=== PATIENT | male | born 1970 ===

== ENCOUNTER 2023-11-15 16:36 | Observation (INO) | payer BC ==
--- NOTE | 2023-11-15 17:03 | ED ---
General Adult HPI - General Chief complaint: Recheck/Abnormal Lab/Rx Stated complaint: Hypertension Time Seen by Provider: 11/15/23 16:44 Source: patient, RN notes reviewed, old records reviewed (Urgent care) Mode of arrival: ambulatory Limitations: no limitations - History of Present Illness Initial comments: Patient is a 53-year-old male presenting to the emergency department with concern for high blood pressure. Patient states he went to urgent care and blood pressure was found to be high. Patient states he went there secondary to having lightheadedness over the past few days. Patient denies any at this time. No chest pain or difficulty breathing. Patient does have history of hypertension during an episode of heart attack in August 2022. Patient states following this his blood pressure normalized and he was weaned off his blood pressure medications. Blood pressure was still normal this past July when he saw his regular doctor. - Related Data Allergies Allergy/AdvReac Type Severity Reaction Status Date / Time No Known Allergies Allergy Verified 11/15/23 16:41 Review of Systems ROS Statement: Those systems with pertinent positive or pertinent negative responses have been documented in the HPI. ROS Other: All systems not noted in ROS Statement are negative. Constitutional: Denies: fever Respiratory: Denies: dyspnea Cardiovascular: Denies: chest pain Gastrointestinal: Denies: abdominal pain Musculoskeletal: Denies: back pain Past Medical History Past Medical History: No Reported History History of Any Multi-Drug Resistant Organisms: None Reported Past Surgical History: Heart Catheterization Additional Past Surgical History / Comment(s): 2022 Past Psychological History: No Psychological Hx Reported Smoking Status: Current every day smoker Past Alcohol Use History: None Reported Past Drug Use History: None Reported General Exam Limitations: no limitations General appearance: alert, in no apparent distress Head exam: Present: normocephalic Eye exam: Present: normal appearance Neck exam: Present: normal inspection Respiratory exam: Present: normal lung sounds bilaterally Cardiovascular Exam: Present: regular rate, normal rhythm, normal heart sounds Expanded Peripheral pulses: 2+: Radial (R), Radial (L), Posterior Tibialis (R), Posterior Tibialis (L) GI/Abdominal exam: Present: soft. Absent: tenderness Extremities exam: Present: normal inspection. Absent: pedal edema, calf tenderness Neurological exam: Present: alert, oriented X3, CN II-XII intact. Absent: motor sensory deficit Psychiatric exam: Present: normal affect, normal mood Skin exam: Present: normal color Course Vital Signs 11/15/23 11/15/23 11/15/23 16:39 17:51 18:25 Temperature 98.6 F Pulse Rate 67 64 70 Respiratory 18 18 18 Rate Blood Pressure 176/123 163/115 162/99 O2 Sat by Pulse 98 98 99 Oximetry 11/15/23 11/15/23 11/15/23 19:16 20:00 20:41 Temperature Pulse Rate 81 78 62 Respiratory 16 Rate Blood Pressure 157/100 164/108 162/107 O2 Sat by Pulse 98 98 99 Oximetry - Reevaluation(s) Reevaluation #1: 11/15/23 18:42 Repeat EKG shows sinus rhythm rate 64. QTc 392. Left axis. Normal QRS. No acute ST change. EKG Findings - EKG Results: EKG: interpreted by JANETTE (Left axis.), sinus rhythm, normal QRS, normal ST/T Medical Decision Making - Medical Decision Making Was pt. sent in by a medical professional or institution (, PA, AIR POLLUTION COMPLIANCE INSPECTOR, urgent care, hospital, or jail...) When possible be specific @ -No Did you speak to anyone other than the patient for history (EMS, parent, family, police, friend...)? What history was obtained from this source @ -No Did you review nursing and triage notes (agree or disagree)? Why? @ -I reviewed and agree with nursing and triage notes Were old charts reviewed (outside hosp., previous admission, EMS record, old EKG, old radiological studies, urgent care reports/EKG's, jail records)? Report findings @ -No old charts were reviewed Differential Diagnosis (chest pain, altered mental status, abdominal pain women, abdominal pain men, vaginal bleeding, weakness, fever, dyspnea, syncope, headache, dizziness, GI bleed, back pain, seizure, CVA, palpatations, mental health, musculoskeletal)? @ -Differential Dizziness: Benign paroxysmal positional Vertigo, Menieres disease, otitis media, acoustic neuroma, vertebrobasilar insufficiency, cerebellar stroke, encephalitis, hypovolemic, arrhythmia, coronary artery syndrome, anemia, this is not meant to be an all-inclusive list EKG interpreted by me (3pts min.). @ -As above X-rays interpreted by me (1pt min.). @ -Chest x-ray shows no acute process CT interpreted by me (1pt min.). @ -None done U/S interpreted by me (1pt. min.). @ -None done What testing was considered but not performed or refused? (CT, X-rays, U/S, labs)? Why? @ -None What meds were considered but not given or refused? Why? @ -None Did you discuss the management of the patient with other professionals (professionals i.e. DrFelice, PA, AIR POLLUTION COMPLIANCE INSPECTOR, lab, RT, psych nurse, administrator social welfare, talent acquisition program manager, teacher, field artillery officer, caser shoe parts)? Give summary @ -Secondary to continued hypertension. Patient will be admitted. Case discussed with Dr. Brown, who will admit his patient. Was smoking cessation discussed for >3mins.? @ -No Was critical care preformed (if so, how long)? @ -31 minutes critical care time Were there social determinants of health that impacted care today? How? (H omelessness, low income, unemployed, alcoholism, drug addiction, transportation, low edu. Level, literacy, decrease access to med. care, group home, rehab)? @ -No Was there de-escalation of care discussed even if they declined (Discuss DNR or withdrawal of care, Hospice)? DNR status @ -No What co-morbidities impacted this encounter? (DM, HTN, Smoking, COPD, CAD, Cancer, CVA, ARF, Chemo, Hep., AIDS, mental health diagnosis, sleep apnea, morbid obesity)? @ -History of hypertension previously, not on medications current Was patient admitted / discharged? Hospital course, mention meds given and route , prescriptions, significant lab abnormalities, going to OR and other pertinent info. @ -Patient presents with some lightheadedness however found to be hypertensive. Patient remains hypertensive despite 2 doses of intravenous Vasotec. Patient will be provided more medication. Patient and family are updated on results and plan. Patient will be admitted. Admission orders written Undiagnosed new problem with uncertain prognosis? @ -No Drug Therapy requiring intensive monitoring for toxicity (Heparin, Nitro, Insulin, Cardizem)? @ -No Were any procedures done? @ -No Diagnosis/symptom? @ -Hypertensive urgency Acute, or Chronic, or Acute on Chronic? @ -Acute Uncomplicated (without systemic symptoms) or Complicated (systemic symptoms)? @ -Default Side effects of treatment? @ -No Exacerbation, Progression, or Severe Exacerbation? @ -No Poses a threat to life or bodily function? How? (Chest pain, [place], [place], pneumonia, PE, COPD, DKA, ARF, appy, cholecystitis, CVA, Diverticulitis, Homicidal, Suicidal, threat to staff... and all critical care pts) @ -Risk for organ dysfunction - Lab Data Result diagrams: 11/15/23 17:11 11/15/23 17:11 Lab Results 11/15/23 11/15/23 11/15/23 Range/Units 17:11 17:11 17:11 WBC 4.3 (3.8-10.6) k/uL RBC 4.66 (4.30-5.90) m/uL Hgb 14.1 (13.0-17.5) gm/dL Hct 41.0 (39.0-53.0) % MCV 87.9 (80.0-100.0) fL MCH 30.3 (25.0-35.0) pg MCHC 34.5 (31.0-37.0) g/dL RDW 13.0 (11.5-15.5) % Plt Count 151 (150-450) k/uL MPV 8.6 Neutrophils % 53 % Lymphocytes % 30 % Monocytes % 6 % Eosinophils % 7 % Basophils % 1 % Neutrophils # 2.3 (1.3-7.7) k/uL Lymphocytes # 1.3 (1.0-4.8) k/uL Monocytes # 0.3 (0-1.0) k/uL Eosinophils # 0.3 (0-0.7) k/uL Basophils # 0.0 (0-0.2) k/uL PT 10.8 (10.0-12.5) sec INR 1.0 (<1.2) APTT 25.1 (22.0-30.0) sec Sodium 140 (137-145) mmol/L Potassium 4.2 (3.5-5.1) mmol/L Chloride 108 H (98-107) mmol/L Carbon Dioxide 27 (22-30) mmol/L Anion Gap 5 mmol/L BUN 14 (9-20) mg/dL Creatinine 0.77 (0.66-1.25) mg/dL Est GFR (CKD-EPI)AfAm >90 (>60 ml/min/1.73 sqM) Est GFR (CKD-EPI)NonAf >90 (>60 ml/min/1.73 sqM) Glucose 101 H (74-99) mg/dL Plasma Lactic Acid Pastor (0.7-2.0) mmol/L Calcium 9.1 (8.4-10.2) mg/dL Magnesium 2.3 (1.6-2.3) mg/dL Total Bilirubin 0.4 (0.2-1.3) mg/dL AST 27 (17-59) U/L ALT 29 (4-49) U/L Alkaline Phosphatase 55 (38-126) U/L Troponin I (0.000-0.034) ng/mL Total Protein 7.0 (6.3-8.2) g/dL Albumin 4.4 (3.5-5.0) g/dL TSH 1.500 (0.465-4.680) mIU/L 11/15/23 11/15/23 Range/Units 17:11 17:11 WBC (3.8-10.6) k/uL RBC (4.30-5.90) m/uL Hgb (13.0-17.5) gm/dL Hct (39.0-53.0) % MCV (80.0-100.0) fL MCH (25.0-35.0) pg MCHC (31.0-37.0) g/dL RDW (11.5-15.5) % Plt Count (150-450) k/uL MPV Neutrophils % % Lymphocytes % % Monocytes % % Eosinophils % % Basophils % % Neutrophils # (1.3-7.7) k/uL Lymphocytes # (1.0-4.8) k/uL Monocytes # (0-1.0) k/uL Eosinophils # (0-0.7) k/uL Basophils # (0-0.2) k/uL PT (10.0-12.5) sec INR (<1.2) APTT (22.0-30.0) sec Sodium (137-145) mmol/L Potassium (3.5-5.1) mmol/L Chloride (98-107) mmol/L Carbon Dioxide (22-30) mmol/L Anion Gap mmol/L BUN (9-20) mg/dL Creatinine (0.66-1.25) mg/dL Est GFR (CKD-EPI)AfAm (>60 ml/min/1.73 sqM) Est GFR (CKD-EPI)NonAf (>60 ml/min/1.73 sqM) Glucose (74-99) mg/dL Plasma Lactic Acid Pastor 0.8 (0.7-2.0) mmol/L Calcium (8.4-10.2) mg/dL Magnesium (1.6-2.3) mg/dL Total Bilirubin (0.2-1.3) mg/dL AST (17-59) U/L ALT (4-49) U/L Alkaline Phosphatase (38-126) U/L Troponin I <0.012 (0.000-0.034) ng/mL Total Protein (6.3-8.2) g/dL Albumin (3.5-5.0) g/dL TSH (0.465-4.680) mIU/L Critical Care Time Critical Care Time: Yes Total Critical Care Time: 31 Disposition Clinical Impression: Hypertensive urgency Disposition: ADMITTED IP TO THIS HOSP Is patient prescribed a controlled substance at d/c from ED?: No Referrals: Albert Brown DO [Primary Care Provider] - 1-2 days Time of Disposition: 20:55
[2023-11-15] MEDS: ENALAPRILAT 1.25 MG/ML 1 ML VIAL IVP STA ×2 (17:52→19:26)
[2023-11-15 18:12] LABS: Basophils % (A) 1 %; Eosinophils # (A) 0.3 k/uL (0-0.7); Eosinophils % (A) 7 %; HGB 14.1 gm/dL (13.0-17.5); Lymphocytes # (A) 1.3 k/uL (1.0-4.8); Lymphocytes % (A) 30 %; MCH 30.3 pg (25.0-35.0); MCHC 34.5 g/dL (31.0-37.0); MCV 87.9 fL (80.0-100.0); Mean Platelet Volume 8.6; Monocytes # (A) 0.3 k/uL (0-1.0); Monocytes % (A) 6 %; Neutrophils # (A) 2.3 k/uL (1.3-7.7); Neutrophils % (A) 53 %; Platelet Count 151 k/uL (150-450); RBC 4.66 m/uL (4.30-5.90); WBC 4.3 k/uL (3.8-10.6)
--- NOTE | 2023-11-15 18:16 | XR ---
EXAMINATION TYPE: XR chest 2V DATE OF EXAM: 11/15/2023 6:11 PM CLINICAL INDICATION:Male, 53 years old with history of Weakness; [facility] COMPARISON: None TECHNIQUE: XR chest 2V Frontal and lateral views of the chest. FINDINGS: Lungs/Pleura: There is no evidence of pleural effusion, focal consolidation, or pneumothorax. Pulmonary vascularity: Unremarkable. Heart/mediastinum: Cardiomediastinal silhouette is unremarkable. Musculoskeletal: No acute osseous pathology. IMPRESSION: No acute cardiopulmonary disease/process.
[2023-11-15 18:22] LABS: Partial Thromboplastin Time 25.1 sec (22.0-30.0); Prothrombin Time 10.8 sec (10.0-12.5)
[2023-11-15 18:31] LABS: ALT 29 U/L (4-49); AST 27 U/L (17-59); African American GFR (CKD) >90 (>60 ml/min/1.73 sqM); Albumin 4.4 g/dL (3.5-5.0); Alkaline Phosphatase 55 U/L (38-126); Anion Gap 5 mmol/L; Blood Urea Nitrogen 14 mg/dL (9-20); Calcium 9.1 mg/dL (8.4-10.2); Carbon Dioxide 27 mmol/L (22-30); Chloride 108 mmol/L (98-107); Glucose 101 mg/dL (74-99); Magnesium 2.3 mg/dL (1.6-2.3); Non-African American GFR(CKD) >90 (>60 ml/min/1.73 sqM); Potassium 4.2 mmol/L (3.5-5.1); Sodium 140 mmol/L (137-145); Total Bilirubin 0.4 mg/dL (0.2-1.3)
[2023-11-15] MEDS ORDERED: ACETAMINOPHEN TAB 325 MG TAB PO PRN (20:56)
[2023-11-15] MEDS ORDERED: NALOXONE 0.4 MG/ML 1 ML VIAL IV PRN (20:56)
[2023-11-15] MEDS: hydrALAZINE HCL 20 MG/ML 1 ML VIAL IVP STA (21:05)
[2023-11-15] MEDS: METOPROLOL TARTRATE 25 MG TAB PO SCH (21:05)
[2023-11-16] MEDS: lisinopriL 20 MG TAB PO SCH (08:15)
[2023-11-16] MEDS: hydrALAZINE HCL 20 MG/ML 1 ML VIAL IVP PRN (10:24)
[2023-11-16] MEDS: ACETAMINOPHEN IV (For NPO) 1,000 MG in EMPTY BAG 1 BAG IVPB STA (11:22)
[2023-11-16] MEDS: ONDANSETRON 4 MG/2 ML VIAL IVP PRN (11:23)
[2023-11-16] MEDS: MECLIZINE 25 MG TAB PO PRN (11:24)
[2023-11-16] MEDS: MAGNESIUM SULFATE-D5W PMX 1 GM in DEXTROSE/WATER 1 100ML.BAG IVPB ONE (11:34)
[2023-11-16] MEDS ORDERED: ONDANSETRON 4 MG/2 ML VIAL IVP PRN (11:56)
[2023-11-16] MEDS: amLODIPine 5 MG TAB PO SCH (12:25)
--- NOTE | 2023-11-16 13:10 | P.CRDCN ---
History of Present Illness Consult date: 11/16/23 Reason for Consult (text): HYPERTENSIVE EMERGENCY History of present illness: History of present illness: This is a 53-year-old male patient of Dr. Sheikh with no previous cardiac history. He denies history of hypertension. Patient states t he was experiencing dizziness and looked it up on Google search and hilar pressure was one of the etiologies. Patient checked his blood pressure at home and it was quite high. He did go to the urgent clinic and from there was sent into the hospital. He had 1 episode of high blood pressure readings in the past in 2021 but has not been on any medications. Patient presented to the hospital with a blood pressure of 176/123. He is status post Vasotec x 2 and hydralazine 10 mg IV x 1. He also received IV Tylenol for headache. Blood pressure is now 139/82. Patient is seen today in the emergency center waiting for bed on the observation unit. EKG sinus rhythm with no acute ST changes Chest x-ray: No acute process. CBC, INR, CMP unremarkable. TSH is 1.5. Troponin negative x 1. Home cardiac medications: None Review Of Systems: At the time of my exam: CONSTITUTIONAL: Denies fever or chills. Reports headache. HEENT: Denies blurred vision, vision changes, or eye pain. Denies hemoptysis CARDIOVASCULAR: Denies chest pain. Denies orthopnea. Denies PND. Denies palpitations RESPIRATORY: Denies shortness of breath. GASTROINTESTINAL: Denies abdominal pain. Denies nausea or vomiting. HEMATOLOGIC: Denies bleeding disorders. GENITOURINARY: Denies any blood in urine. SKIN: Denies pruitis. Denies rash. Physical examination: Gen: This is a 53-year-old male in no acute distress VS: reviewed HEENT: Head is atraumatic, normocephalic. Pupils equal, round. Sclerae is anicteric. NECK: Supple. No JVD. LUNGS: Clear to auscultation. No wheezes or rhonchi. No intercostal retractions. HEART: Regular rate and rhythm. No murmur. ABDOMEN: Soft No tenderness. EXTREMITIES: No pedal edema. No calf tenderness. NEUROLOGICAL: Patient is awake, alert and oriented x3. Assessment: Hypertensive urgency Plan: Continue patient on lisinopril 20 mg daily, Lopressor 25 mg twice daily Add amlodipine 5 mg daily Obtain cortisol, metanephrines, aldosterone, renin Obtain 2-D echocardiogram and Doppler study to assess cardiac structure and function Monitor blood pressure closely Further recommendations to follow based upon clinical course Thank you kindly for this consultation. Nurse practitioner note has been reviewed, I agree with documented findings and plan of care. Patient was seen and examined. Past Medical History Past Medical History: No Reported History History of Any Multi-Drug Resistant Organisms: None Reported Past Surgical History: Heart Catheterization Additional Past Surgical History / Comment(s): [place] 2022 Past Psychological History: No Psychological Hx Reported Smoking Status: Current every day smoker Past Alcohol Use History: None Reported Past Drug Use History: None Reported Medications and Allergies Home Medications Medication Instructions Recorded Confirmed Type No Known Home Medications 11/15/23 11/15/23 History Allergies Allergy/AdvReac Type Severity Reaction Status Date / Time No Known Allergies Allergy Verified 11/15/23 21:41 Physical Exam Vitals: Vital Signs Temp Pulse Pulse Resp BP BP Pulse Ox 11/16/23 11:32 98.3 F 88 18 139/82 98 11/16/23 10:23 80 18 167/108 99 11/16/23 08:14 98.1 F 85 18 163/109 99 11/16/23 06:17 81 22 135/88 98 11/16/23 02:00 85 17 131/93 98 11/15/23 21:50 92 16 153/101 99 11/15/23 20:41 62 162/107 99 11/15/23 20:00 78 164/108 98 11/15/23 19:16 81 16 157/100 98 11/15/23 18:25 70 18 162/99 99 11/15/23 17:51 64 18 163/115 98 11/15/23 16:39 98.6 F 67 18 176/123 98 Intake and Output 11/15/23 11/16/23 11/16/23 22:59 06:59 14:59 Other: Voiding Method Toilet # Voids 1 1 Weight 77.111 kg Results 11/15/23 17:11 11/15/23 17:11 Cardiac Enzymes 11/15/23 11/15/23 Range/Units 17:11 17:11 AST 27 (17-59) U/L Troponin I <0.012 (0.000-0.034) ng/mL Coagulation 11/15/23 Range/Units 17:11 PT 10.8 (10.0-12.5) sec APTT 25.1 (22.0-30.0) sec CBC 11/15/23 Range/Units 17:11 WBC 4.3 (3.8-10.6) k/uL RBC 4.66 (4.30-5.90) m/uL Hgb 14.1 (13.0-17.5) gm/dL Hct 41.0 (39.0-53.0) % Plt Count 151 (150-450) k/uL Comprehensive Metabolic Panel 11/15/23 Range/Units 17:11 Sodium 140 (137-145) mmol/L Potassium 4.2 (3.5-5.1) mmol/L Chloride 108 H (98-107) mmol/L Carbon Dioxide 27 (22-30) mmol/L BUN 14 (9-20) mg/dL Creatinine 0.77 (0.66-1.25) mg/dL Glucose 101 H (74-99) mg/dL Calcium 9.1 (8.4-10.2) mg/dL AST 27 (17-59) U/L ALT 29 (4-49) U/L Alkaline Phosphatase 55 (38-126) U/L Total Protein 7.0 (6.3-8.2) g/dL Albumin 4.4 (3.5-5.0) g/dL Current Medications Generic Name Dose Route Start Last Admin Trade Name Freq PRN Reason Stop Dose Admin Acetaminophen 650 mg 11/15/23 20:56 Acetaminophen Tab 325 Mg Tab PO Q6HR PRN Mild Pain or Fever > 100.5 Hydralazine HCl 10 mg 11/15/23 20:57 11/16/23 10:24 Hydralazine Hcl 20 Mg/Ml 1 Ml Vial IVP 10 mg Q4HR PRN Administration Blood Pressure - High Lisinopril 20 mg 11/16/23 09:00 11/16/23 08:15 Lisinopril 20 Mg Tab PO 20 mg DAILY DAVID Administration Meclizine HCl 25 mg 11/16/23 06:54 11/16/23 11:24 Meclizine 25 Mg Tab PO 25 mg TID PRN Administration Vertigo Metoprolol Tartrate 25 mg 11/15/23 21:00 03/06/24 08:15 Metoprolol Tartrate 25 Mg Tab PO 25 mg BID DAVID Administration Naloxone HCl 0.2 mg 11/15/23 20:56 Naloxone 0.4 Mg/Ml 1 Ml Vial IV Q2M PRN Opioid Reversal Ondansetron HCl 4 mg 11/16/23 11:56 Ondansetron 4 Mg/2 Ml Vial IVP Q6HR PRN Nausea And Vomiting Intake and Output 11/15/23 11/16/23 11/16/23 22:59 06:59 14:59 Other: Voiding Method Toilet # Voids 1 1 Weight 77.111 kg 11/15/23 17:11 11/15/23 17:11
--- NOTE | 2023-11-16 18:02 | P.HPIM ---
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 Computer history states patient is an everyday smoker -incorrect -patient does not smoke .computer reports an HI in 2022; apparently 1 year ago patient had a similar episode, reports first troponin elevated, second troponin within normal limits, labeled with an "HI" . Patient proceeded to follow-up with [facility] trouble shooter. Reports had a echo and stress-reporting both normal. Reports 1 episode of high blood pressure readings in 2021. Followed closely with his PCP, Dr. Brown, every 4 months. Over the last year, prior medications have been weaned off as per PCP. Over the last few days, developed lightheadedness, dizziness, felt hypertensive possibly and proceeded to the urgent care .discovered to be hypertensive and directed to the ER .denies chest pain, palpitations or shortness of breath. Positive headache. On admission blood pressure 176/123, received Vasotec and hydralazine IV. EKG reported sinus rhythm, chest x-ray reported nonacute, CBC, INR, CMP unremarkable, TSH 1.5, troponin negative x 1. Blood pressure currently 135/88, heart rate 81, respiratory rate 22. Maintaining O2 sats in the high 90s on room air. Review of Systems ROS Statement: Those systems with pertinent positive or pertinent negative responses have been documented in the HPI. ROS Other: All systems not noted in ROS Statement are negative. Past Medical History Past Medical History: No Reported History History of Any Multi-Drug Resistant Organisms: None Reported Past Surgical History: Heart Catheterization Additional Past Surgical History / Comment(s): [place] 2022 Past Psychological History: No Psychological Hx Reported Smoking Status: Current every day smoker Past Alcohol Use History: None Reported Past Drug Use History: None Reported Medications and Allergies Home Medications Medication Instructions Recorded Confirmed Type No Known Home Medications 11/15/23 11/15/23 History Allergies Allergy/AdvReac Type Severity Reaction Status Date / Time No Known Allergies Allergy Verified 11/15/23 21:41 Physical Exam Vitals: Vital Signs Temp Pulse Pulse Resp BP BP Pulse Ox 11/16/23 11:32 98.3 F 88 18 139/82 98 11/16/23 10:23 80 18 167/108 99 11/16/23 08:14 98.1 F 85 18 163/109 99 11/16/23 06:17 81 22 135/88 98 11/16/23 02:00 85 17 131/93 98 11/15/23 21:50 92 16 153/101 99 11/15/23 20:41 62 162/107 99 11/15/23 20:00 78 164/108 98 11/15/23 19:16 81 16 157/100 98 11/15/23 18:25 70 18 162/99 99 11/15/23 17:51 64 18 163/115 98 11/15/23 16:39 98.6 F 67 18 176/123 98 Intake and Output 11/15/23 11/16/23 11/16/23 22:59 06:59 14:59 Other: Voiding Method Toilet # Voids 1 1 Weight 77.111 kg PHYSICAL EXAM: VITAL SIGNS: [As above] GENERAL: Pleasant, alert and oriented x 3, resting on stretcher, no acute distre ss HEENT: Normocephalic ,conjunctivae normal. eyes normal. NECK: Supple, no JVD. No thyroid enlargement. No LNs CARDIOVASCULAR: S1, S2 regular.. No murmur RESPIRATION: Unlabored, equal air entry, clear to auscultation . ABDOMEN: Soft, nondistended, nontender . No guarding. no masses palpable. No ascites, No hepatosplenomegaly.+BS. LEGS: No edema. no swelling, no clubbing, no cyanosis, no calf tenderness. NERVOUS SYSTEM: Cranial N 2-12 grossly normal. No focal deficits. Strength and sensation grossly intact.. Skin: Warm and dry, no rash Results CBC & Chem 7: 11/15/23 17:11 11/15/23 17:11 Labs: Abnormal Lab Results - Last 24 Hours (Table) 11/15/23 Range/Units 17:11 Chloride 108 H (98-107) mmol/L Glucose 101 H (74-99) mg/dL Assessment and Plan Assessment: Hypertensive urgency Plan: Continue on current medication regimen ,monitoring and symptomatic treatment. Continue on MELLISSA inhibitor and beta-miguelina, close monitoring of blood pressure. IV magnesium and IV Tylenol ordered for headache. cardiology consulted with recommendations pending. Echo ordered. PPI for GI prophylaxis. The impression and plan of care has been dictated as directed. : I performed a history and examination of this patient, discussed the same with the dictator. I agree with the dictator's note ,documented as a scribe. Any additional findings or plans will be noted.
[2023-11-16] MEDS: DICLOFENAC SODIUM GEL 100 GM TUBE TOPICAL SCH (18:05)
[2023-11-16] MEDS: PANTOPRAZOLE 40 MG/10 ML VIAL IVP SCH (18:07)
--- NOTE | 2023-11-17 09:44 | P.PN ---
Subjective Progress Note Date: 11/17/23 Reason for Consult (text): HYPERTENSIVE EMERGENCY History of present illness: This is a 53-year-old male patient of Dr. Sheikh with no previous cardiac history. He denies history of hypertension. Patient states t he was experiencing dizziness and looked it up on Google search and hilar pressure was one of the etiologies. Patient checked his blood pressure at home and it was quite high. He did go to the urgent clinic and from there was sent into the hospital. He had 1 episode of high blood pressure readings in the past in 2021 but has not been on any medications. Patient presented to the hospital with a blood pressure of 176/123. He is status post Vasotec x 2 and hydralazine 10 mg IV x 1. He also received IV Tylenol for headache. Blood pressure is now 139/82. Patient is seen today in the emergency center waiting for bed on the observation unit. EKG sinus rhythm with no acute ST changes Chest x-ray: No acute process. CBC, INR, CMP unremarkable. TSH is 1.5. Troponin negative x 1. Home cardiac medications: None 11/16 Patient is seen today in follow-up on the observation unit. Blood pressure 125/76, heart rate 81, pulse ox 99% on room air. Patient is currently on amlodipine, lisinopril and metoprolol. We will plan to discontinue the metoprolol. Cortisol level 21. Other lab work for secondary hypertension are pending. Physical examination: Gen: This is a 53-year-old male in no acute distress VS: reviewed HEENT: Head is atraumatic, normocephalic. Pupils equal, round. Sclerae is anicteric. NECK: Supple. No JVD. LUNGS: Clear to auscultation. No wheezes or rhonchi. No intercostal retractions. HEART: Regular rate and rhythm. No murmur. ABDOMEN: Soft No tenderness. EXTREMITIES: No pedal edema. No calf tenderness. NEUROLOGICAL: Patient is awake, alert and oriented x3. Assessment: Hypertensive urgency Plan: Continue patient on lisinopril 20 mg daily and amlodipine 5 mg daily Obtain metanephrines, aldosterone, renin Obtain 2-D echocardiogram and Doppler study to assess cardiac structure and function If echocardiogram is unremarkable, patient is cleared for discharge from cardiology and may follow-up with Dr. Sheikh in 1 week. Nurse practitioner note has been reviewed, I agree with documented findings and plan of care. Patient was seen and examined. Objective - Vital Signs Vital signs: Vital Signs Temp 98.0 F 11/17/23 02:00 Pulse 81 11/17/23 02:00 Resp 16 11/17/23 02:00 BP 125/76 11/17/23 02:00 Pulse Ox 99 11/17/23 02:00 FiO2 Intake & Output 11/16/23 11/17/23 11/17/23 18:59 06:59 18:59 Weight 77.111 kg Other: Voiding Method Toilet Toilet # Voids 3 - Labs CBC & Chem 7: 11/15/23 17:11 11/15/23 17:11
--- NOTE | 2023-11-17 10:32 | CA ---
Transthoracic Echo Report Name: Sharad Dennison Age: 53 Gender: M : 1970 Exam Date: 11/17/2023 08:45 Exam Location: [facility] Ht (in): 66 Wt (lb): 170 Ordering Physician: Jil Danielson Attending/Referring Phys: [id number], Jagjit Pullman Car Repairer Niurka Ceballos RCS Procedure CPT: Indications: LVF Cardiac Hx: Hypertension Technical Quality: Good Contrast 1: Total Dose (mL): Contrast 2: Total Dose (mL): MEASUREMENTS (Male / Female) Normal Values 2D ECHO LV Diastolic Diameter PLAX 4.0 cm 4.2 - 5.9 / 3.9 - 5.3 cm LV Systolic Diameter PLAX 2.6 cm IVS Diastolic Thickness 1.3 cm 0.6 - 1.0 / 0.6 - 0.9 cm LVPW Diastolic Thickness 1.0 cm 0.6 - 1.0 / 0.6 - 0.9 cm LV Relative Wall Thickness 0.6 RV Internal Dim ED PLAX 2.0 cm LVOT Diameter 2.1 cm LV Diastolic Volume MOD BP 105.0 cm??? 67 - 155 / 56 - 104 cm??? LV Systolic Volume MOD BP 36.2 cm??? 22 - 58 / 19 - 49 cm??? LV Ejection Fraction MOD BP 65.5 % >= 55 % LV Cardiac Index MOD BP 2986.9 cm???/min???m??? LV Diastolic Volume MOD 4C 111.8 cm??? LV Systolic Volume MOD 4C 39.8 cm??? LV Ejection Fraction MOD 4C 64.4 % LV Cardiac Index MOD 4C 3123.1 cm???/min???m??? LV Diastolic Length 4C 8.7 cm LV Systolic Length 4C 6.9 cm LV Diastolic Volume MOD 2C 94.3 cm??? LV Systolic Volume MOD 2C 32.1 cm??? LV Ejection Fraction MOD 2C 66.0 % LV Cardiac Index MOD 2C 2699.7 cm???/min???m??? LV Diastolic Length 2C 8.2 cm LV Systolic Length 2C 6.7 cm LA Volume 46.7 cm??? 18 - 58 / 22 - 52 cm??? LA Volume Index 24.4 cm???/m??? 16 - 28 cm???/m??? Ascending Aorta Diameter 3.1 cm DOPPLER AV Peak Velocity 121.5 cm/s AV Peak Gradient 5.9 mmHg AV Mean Velocity 83.1 cm/s AV Mean Gradient 3.2 mmHg AV Velocity Time Integral 24.9 cm LVOT Peak Velocity 128.0 cm/s LVOT Peak Gradient 6.6 mmHg LVOT Velocity Time Integral 25.1 cm LVOT Stroke Volume 85.8 cm??? LVOT Stroke Volume Index 46.0 ml/m??? LVOT Cardiac Index 3725.6 cm???/min???m??? AV Area Cont Eq vti 3.4 cm??? AV Area Cont Eq pk 3.6 cm??? Mitral E Point Velocity 75.1 cm/s Mitral A Point Velocity 73.8 cm/s Mitral E to A Ratio 1.0 MV Deceleration Time 170.9 ms MV E' Velocity 5.5 cm/s Mitral E to MV E' Ratio 13.6 PV Peak Velocity 93.0 cm/s PV Peak Gradient 3.5 mmHg FINDINGS Left Ventricle Left ventricular ejection fraction is estimated at 60-65 %. Mildly increased septal wall thickness. Left ventricular cavity size normal. No obvious regional wall motion abnormalities. Right Ventricle Normal right ventricular size and function. Unable to determine right ventricular systolic function. Right Atrium Normal right atrial size. Left Atrium Normal left atrial size. Mitral Valve Structurally normal mitral valve. No evidence for mitral valve prolapse. No mitral stenosis. Trace mitral regurgitation. Aortic Valve Trileaflet aortic valve. No aortic stenosis. Mild aortic regurgitation. Tricuspid Valve Structurally normal tricuspid valve. No tricuspid stenosis, regurgitation or prolapse. Pulmonic Valve Structurally normal pulmonic valve. No pulmonic regurgitation. No pulmonic stenosis. Pericardium No pericardial effusion. Aorta Normal size aortic root and proximal ascending aorta. CONCLUSIONS Normal left ventricular size wall motion systolic function Mild aortic regurgitation Previewed by: Dr. Eyad Ruvalcaba MD (Electronically Signed) Final Date: 17 November 2023 10:31
[2023-11-17 14:46] LABS: Glucose,Whole Blood 115 mg/dL (70-110)
[2023-11-18] MEDS: amLODIPine 10 MG TAB PO SCH (08:23)
--- NOTE | 2023-11-18 09:20 | P.PN ---
Subjective Date of service for this note is 11/17/2023. Patient is seen and examined by me at bedside. also was present at bedside. 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 Computer history states patient is an everyday smoker -incorrect -patient does not smoke .computer reports an IN in 2022; apparently 1 year ago patient had a similar episode, reports first troponin elevated, second troponin within normal limits, labeled with an "IN" . Patient proceeded to follow-up with [place] manual lathe operator. Reports had a echo and stress-reporting both normal. Reports 1 episode of high blood pressure readings in 2021. Followed closely with his PCP, Dr. Brown, every 4 months. Over the last year, prior medications have been weaned off as per PCP. Over the last few days, developed lightheadedness, dizziness, felt hypertensive possibly and proceeded to the urgent care .discovered to be hypertensive and directed to the ER .denies chest pain, palpitations or shortness of breath. Positive headache. On admission blood pressure 176/123, received Vasotec and hydralazine IV. EKG reported sinus rhythm, chest x-ray reported nonacute, CBC, INR, CMP unremarkable, TSH 1.5, troponin negative x 1. Blood pressure currently 135/88, heart rate 81, respiratory rate 22. Maintaining O2 sats in the high 90s on room air. 11/17/2023 Patient is a pleasant 53 years old male who presents initially because of high blood pressure. Blood pressure on admission was 176/123. Patient was evaluated by manual lathe operator and he was started on Norvasc 5 mg, lisinopril 20 mg and metoprolol 25 mg however metoprolol was discontinued today by manual lathe operator and cleared him for discharge however the patient felt extremely weak and lethargic we monitored him for another 2 hours patient remains very weak and lethargic therefore we held his discharge. We are going to monitor him for another 24 hours Patient also is afebrile Labs including CBC, INR, BMP, liver enzymes were unremarkable TSH is 1.5 Cortisol 21 EKG showing sinus rhythm at 64 and chest x-ray is negative for acute process Case was discussed with the bedside nurse Chris Objective - Vital Signs Vital signs: Vital Signs Temp 97.4 F L 11/18/23 07:00 Pulse 81 11/18/23 08:30 Resp 19 11/18/23 07:00 BP 150/95 11/18/23 08:30 Pulse Ox 99 11/18/23 08:30 FiO2 Intake & Output 11/17/23 11/18/23 11/18/23 18:59 06:59 18:59 Intake Total 100 Balance 100 Intake: Oral 100 Other: Voiding Method Toilet Toilet # Voids 2 3 - Exam -GENERAL: The patient is alert and oriented x3, not in any acute distress. Well developed, well nourished. Patient is very weak and lethargic HEENT: Pupils are round and equally reacting to light. EOMI. No scleral icterus. No conjunctival pallor. Normocephalic, atraumatic. No pharyngeal erythema. No thyromegaly. CARDIOVASCULAR: S1 and S2 present. No murmurs, rubs, or gallops. PULMONARY: Chest is clear to auscultation, no wheezing , no crackles. ABDOMEN: Soft, nontender, nondistended, normoactive bowel sounds. No palpable organomegaly. MUSCULOSKELETAL: No joint swelling or deformity. EXTREMITIES: No cyanosis, clubbing, or pedal edema. NEUROLOGICAL: Gross neurological examination did not reveal any focal deficits. SKIN: No rashes. no petechiae. - Labs CBC & Chem 7: 11/15/23 17:11 11/15/23 17:11 Labs: Abnormal Lab Results - Last 24 Hours (Table) 11/16/23 11/17/23 Range/Units 12:57 14:44 POC Glucose (mg/dL) 115 H (70-110) mg/dL Renin Direct <2.1 L (3.1 - 57.1) pg/mL Assessment and Plan Assessment: Hypertension with urgency present on admission, currently better controlled Severe weakness and lethargy Plan: Continue with Norvasc 5 mg and lisinopril per manual lathe operator Continue monitoring for another 24 hours Check BMP in the morning Cardiology already cleared the patient for discharge but we held it because of his weakness Labs and medication were reviewed.. Continue same treatment. Continue with symptomatic treatment. Monitor labs and vitals. DVT and GI prophylaxis. Further recommendations as per clinical course of the patient DVT prophylaxis: Subcutaneous heparin GI Prophylaxis: Pepcid
[2023-11-18 10:33] LABS: African American GFR (CKD) >90 (>60 ml/min/1.73 sqM); Anion Gap 13 mmol/L; Blood Urea Nitrogen 9 mg/dL (9-20); Calcium 9.4 mg/dL (8.4-10.2); Carbon Dioxide 19 mmol/L (22-30); Chloride 108 mmol/L (98-107); Glucose 175 mg/dL (74-99); Non-African American GFR(CKD) >90 (>60 ml/min/1.73 sqM); Potassium 4.5 mmol/L (3.5-5.1); Sodium 140 mmol/L (137-145)
--- NOTE | 2023-11-18 10:54 | P.PN ---
Subjective Progress Note Date: 11/18/23 Reason for Consult (text): HYPERTENSIVE EMERGENCY History of present illness: This is a 53-year-old male patient of Dr. Sheikh with no previous cardiac history. He denies history of hypertension. Patient states t he was experiencing dizziness and looked it up on Google search and hilar pressure was one of the etiologies. Patient checked his blood pressure at home and it was quite high. He did go to the urgent clinic and from there was sent into the hospital. He had 1 episode of high blood pressure readings in the past in 2021 but has not been on any medications. Patient presented to the hospital with a blood pressure of 176/123. He is status post Vasotec x 2 and hydralazine 10 mg IV x 1. He also received IV Tylenol for headache. Blood pressure is now 139/82. Patient is seen today in the emergency center waiting for bed on the observation unit. EKG sinus rhythm with no acute ST changes Chest x-ray: No acute process. CBC, INR, CMP unremarkable. TSH is 1.5. Troponin negative x 1. Home cardiac medications: None 11/16 Patient is seen today in follow-up on the observation unit. Blood pressure 125/76, heart rate 81, pulse ox 99% on room air. Patient is currently on amlodipine, lisinopril and metoprolol. We will plan to discontinue the metoprolol. Cortisol level 21. Other lab work for secondary hypertension are pending. 11/17 Patient's blood pressure continues to be elevated 151/103. States he still feels a little weak. Repeat blood work reveals sodium 140, potassium 4.5, chloride 108, CO2 19, BUN 9 creatinine 0.77. Echocardiogram reveals EF 60 to 65%, mild aortic regurgitation. Renin direct is less than 2.1 and aldosterone level 8.1. Physical examination: Gen: This is a 53-year-old male in no acute distress VS: reviewed HEENT: Head is atraumatic, normocephalic. Pupils equal, round. Sclerae is anicteric. LUNGS: Clear to auscultation. No wheezes or rhonchi. No intercostal retractions. HEART: Regular rate and rhythm. No murmur. EXTREMITIES: No pedal edema. No calf tenderness. NEUROLOGICAL: Patient is awake, alert and oriented x3. Assessment: Hypertensive urgency Plan: Increase amlodipine to 10 mg daily and continue lisinopril at 20 mg daily If blood pressure remains elevated by this afternoon, increase lisinopril to 30 mg daily Obtain metanephrines If blood pressure is improved, patient is cleared for discharge from cardiology and may follow-up with Dr. Jennifer Ruvalcaba. Nurse practitioner note has been reviewed, I agree with documented findings and plan of care. Patient was seen and examined. Objective - Vital Signs Vital signs: Vital Signs Temp 97.4 F L 11/18/23 07:00 Pulse 67 11/18/23 07:00 Resp 19 11/18/23 07:00 BP 151/103 11/18/23 07:00 Pulse Ox 100 11/18/23 07:00 FiO2 Intake & Output 11/17/23 11/18/23 11/18/23 18:59 06:59 18:59 Intake Total 100 Balance 100 Intake: Oral 100 Other: Voiding Method Toilet Toilet # Voids 2 3 - Labs CBC & Chem 7: 11/15/23 17:11 11/18/23 09:49 Labs: Abnormal Lab Results - Last 24 Hours (Table) 11/16/23 11/17/23 Range/Units 12:57 14:44 POC Glucose (mg/dL) 115 H (70-110) mg/dL Renin Direct <2.1 L (3.1 - 57.1) pg/mL
[2023-11-18 12:21] VITALS: BP 130/87; PULSE 85; RESP 16; TEMP 97.9
--- NOTE | 2023-11-18 22:53 | P.DS ---
Providers Date of admission: 11/15/23 20:57 Attending physician: Albert Brown Consults: 11/16/23 09:32 Consult Physician Routine Consulting Provider: Benjamin Sheikh Consult Reason/Comments: htn urgency Do you want consulting provider notified?: Yes Primary care physician: Albert Brown [facility] Course: Diagnoses: Hypertension with urgency present on admission, currently better controlled Severe weakness and lethargy Hospital course: Patient is a pleasant 53 years old male who presents initially because of high blood pressure. Blood pressure on admission was 176/123. Patient was evaluated by valve repairer and he was started on Norvasc 5 mg, lisinopril 20 mg and metoprolol 25 mg however metoprolol was discontinued today yesterday by valve repairer and cleared him for discharge however the patient felt extremely weak and lethargic so we decided to keep him and monitor him for another 24 hours Patient today reports improvement however has not completely resolved. I offered to do further workup like CT of the brain and asked neurologist to evaluate the patient but he declined he states he feels improved and he wants to go home. Patient denies any other neurosymptoms. No chest pain or dyspnea. No abdominal pain vomiting or diarrhea. No urinary habits. No weakness numbness. Patient was cleared for discharge by valve repairer Patient eager to be discharged home today. We gave him extensive instruction to monitor himself and to call back 911 to the hospital if he develops any symptoms including but not limited to fever chills chest pain dyspnea abdominal pain vomiting diarrhea headache dizziness or weakness and he verbalized understanding and acceptance Problems and management plan were discussed with the patient and he verbalized understanding and acceptance Patient was found stable and can be discharged home in guarded prognosis however he needs follow-up as an outpatient. Patient was instructed to follow up with PCP Dr. Brown within one week and patient agrees Patient was instructed to follow-up with Dr. Johnson in 1 week after discharge. Also patient referred to neurologist if symptoms does not improve with Dr. Jaimes return he verbalized understanding and acceptance Physical exam Gen: patient is a AAOx3, no distress CVS: S1-S2, RRR, no murmur Lungs: B/L CTA, no wheezing Abdomen: soft, no distention, no tenderness, positive bowel sounds Extremity: no leg edema or induration Time spent more than 35 minutes Plan - Discharge Summary New Discharge Prescriptions: New Diclofenac Sodium Gel [Voltaren 1% Gel] 2 gm TOPICAL QID gm lisinopriL [Zestril] 20 mg PO DAILY #30 tab amLODIPine [Norvasc] 10 mg PO DAILY #30 tab Discharge Medication List Diclofenac Sodium Gel [Voltaren 1% Gel] 2 gm TOPICAL QID gm 11/17/23 [Rx] lisinopriL [Zestril] 20 mg PO DAILY #30 tab 11/17/23 [Rx] amLODIPine [Norvasc] 10 mg PO DAILY #30 tab 11/18/23 [Rx] Follow up Appointment(s)/Referral(s): Albert Brown DO [Primary Care Provider] - 1-2 days Gonzales Layton MD [Medical Doctor] - 1 Week (neurologist) Eyad Ruvalcaba MD [STAFF PHYSICIAN] - 11/29/23 9:00 am Activity/Diet/Wound Care/Special Instructions: Heart healthy diet Activity is restricted till you see your doctor Recommend to check your blood pressure with manual blood pressure cuff with your doctor in 1 week after discharge. Please contact your health insurance provider to find a nearby primary care doctor if you do not have 1. Please call to make an appointment in 1 week after discharge Please call 911 to come to emergency room if you develop any worsening symptoms like worsening headache, dizziness blurred vision, double vision, slurred speech, extremity weakness or tingling or numbness. If you develop fever more severe weakness, passing out, chest pain or shortness of breath or any other complaint. Discharge Disposition: HOME SELF-CARE
[2023-11-22 19:42] LABS: Metanephrine, Free <25 pg/mL (< OR = 57); Normetanephrine, Free 96 pg/mL (< OR = 148); Total, Free (MN + NMN) 96 pg/mL (< OR = 205)
== END 2023-11-18 13:20 | disposition home or self-care (01) ==
LOC: EC 16:36 → 6NMEDSUR 20:57
PROVIDERS: ADMIT Family Medicine; ATTEND Family Medicine
DX: I16.0 Hypertensive urgency (principal); I10 Essential (primary) hypertension; I34.0 Nonrheumatic mitral (valve) insufficiency; I25.2 Old myocardial infarction
CPT/HCPCS: 96376 ×4; 96375 ×3; 96368; 96365; 99285; 36415; 93005; 93306; 83835; 80053; 80048; 82533; 82088; 84244; 83605; 83735; 84443; 84484; 85025; 85610; 85730; 87636; 71046; G0378 ×4; J0360 ×2; J2405; J3475; J0131; C9113 ×3

== ENCOUNTER → 2024-08-08 | Outpatient (CLI) | payer BC ==
--- NOTE | 2024-08-08 13:09 | XR ---
EXAMINATION TYPE: XR cervical spine comp DATE OF EXAM: 08/08/2024 1:01 PM INDICATION: Patient age:Male; 54 years old; Reason for study: M54.2 CERVICALGIA; [facility]. COMPARISON: None TECHNIQUE: The cervical spine was imaged in frontal, lateral, bilateral oblique, and odontoid project ions. FINDINGS: No acute fracture. Straightening of the normal cervical lordosis.. There are osteophytes noted throug hout the cervical spine on the anterior and lateral aspects of the vertebral bodies. Disc space narro wing is most pronounced at C6-C7. Facet joint arthropathy at C7-T1. Pedicles are intact. Soft tissue s are within normal limits. The odontoid appears intact. IMPRESSION: 1. No fracture or dislocation. 2. Mild to moderate degenerative disc disease changes of the cervical spine with large anterior osteo phytosis. [facility], , 08/08/2024 1:06 PM
== END | disposition home or self-care (01) ==
LOC: RADXRMAIN 12:42
PROVIDERS: ATTEND Family Medicine
DX: M50.30 Other cervical disc degeneration, unspecified cervical region (principal); M47.892 Other spondylosis, cervical region
CPT/HCPCS: 72050

== ENCOUNTER → 2024-11-15 | Outpatient (CLI) | payer BC ==
--- NOTE | 2024-11-15 09:22 | MR ---
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 COMPARISON: Cervical spine radiograph 08/08/2024, 11/06/2024. TECHNIQUE: Multi planar, multi sequence imaging was performed of the cervical spine. No Gadolinium wa s given. FINDINGS: Alignment: The cervical vertebral bodies have preserved heights. Reversal of the normal cervical lord osis. Grade 1 anterolisthesis of C2 on C3 and C3 on C4. Bones: Multilevel type II Modic changes of the cervical vertebral bodies and most pronounced involvin g the C6-C7 endplates. No abnormal STIR signal. Multilevel large anterior osteophytosis of the cervic al spine from C3 through T1. Cord: The spinal cord is unremarkable with regards to their signal intensity and morphology. Discs: Multilevel disc desiccation is present. Prominent disc height loss at C6-C7. C2-C3: Grade 1 anterolisthesis without evidence of disc herniation. No significant central canal sten osis. C3-C4: Grade 1 anterolisthesis. Broad-based disc bulge with minimal effacement of anterior thecal sac . Mild narrowing of the spinal canal. There is flattening of the anterior spinal cord. The left neur al foramen is patent. Advanced right facet arthropathy with severe right neural foraminal stenosis. C4-C5: No evidence of disc herniation. There is flattening of the anterior spinal cord. Mild narrowin g of the spinal canal. No neural foraminal stenosis. C5-C6: Broad-based disc bulge with minimal effacement of the thecal sac. There is flattening of the a nterior spinal cord. Mild narrowing of the spinal canal. No neural foraminal stenosis. C6-C7: Posterior disc osteophyte complex with minimal effacement of the anterior thecal sac. Mild sarah tral canal stenosis with flattening of the anterior aspect of the spinal cord. Uncovertebral joint hy pertrophy with mild bilateral neural foraminal stenosis. C7-T1: No significant disc pathology. The spinal canal is patent. No neural foraminal stenosis. Other: There is loss of flow void of the left vertebral artery beginning at the C6 level and extendin g to the C3-C4 level. IMPRESSION: 1. No evidence for disc herniation or significant spinal canal stenosis. 2. Moderate multilevel disc degeneration with associated osteoarthritic changes. Severe right neural foraminal stenosis at C3-C4 due to advanced facet arthropathy. 3. Reversal of the normal cervical lordosis with grade 1 anterolisthesis of C2 on C3 and C3 on C4. 4. Left vertebral artery flow void loss which could indicate occlusion/dissection versus artifact. Re commend further evaluation with CTA. [facility], , 11/15/2024 9:19 AM
== END | disposition home or self-care (01) ==
LOC: RADMRIMAIN 08:26
PROVIDERS: ATTEND Orthopaedic Surgery
DX: M45.2 Ankylosing spondylitis of cervical region (principal); M25.78 Osteophyte, vertebrae; M50.323 Other cervical disc degeneration at C6-C7 level; M43.12 Spondylolisthesis, cervical region; M47.812 Spondylosis without myelopathy or radiculopathy, cervical region; M48.02 Spinal stenosis, cervical region
CPT/HCPCS: 72141